=== PATIENT | female | born 1935 | race Caucasian/White ===

== ENCOUNTER → 2018-01-15 | Outpatient (CLI) | payer OTHER ==
[~2018-01-15] MED LIST: ACTONEL150 MG PO; ADULT LOW DOSE81 MG PO; ALLEGRA ALLERGY60 MG PO; ATORVASTATIN CA40 MG PO; BENADRYL25 MG PO; CALCIUM; CALCIUM 500 +1 EAC5 PO; CALCIUM PO; CARVEDILOL12.5 MG PO; CELEXA 10 MG TA10 M1 PO; CENTRUM SILVER1 EAC1 PO; DHEA25 MG PO; ELIQUIS5 MG PO; FLECAINIDE ACE100 MG PO; LANOXIN 0.120.125 M1 PO; LEVOTHYROXIN0.088 MG PO; LEVOXYL100 MCG PO; LIPITOR20 MG PO; MEGA BIOTIN10000 MCG PO; MEGA RED; MEGA RED PO; MULTIVITAMINS PO; OMEGA-31000 MG PO; PACERONE 200 M200 M1 PO; POLICOSANOL PO; PRILOSEC PO; PRILOSEC20 MG PO; VITAMIN D400 UNI1 PO; ZOCOR PO; [UNRECOGNIZED DRUG - REMARK]
== END ==
LOC: RAD 12:36
DX: I10 Essential (primary) hypertension (principal); I48.91 Unspecified atrial fibrillation; Z79.899 Other long term (current) drug therapy

== ENCOUNTER → 2021-11-28 | Outpatient (CLI) | payer MEDICARE ==
[2021-11-28 11:29] LABS: CREATININE 0.9 mg/dL (0.6-1.0)
== END ==
LOC: CAT 10:03
PROVIDERS: ATTEND Family Medicine
DX: J43.9 Emphysema, unspecified (principal); J90 Pleural effusion, not elsewhere classified; K57.30 Diverticulosis of large intestine without perforation or abscess without bleeding; N28.1 Cyst of kidney, acquired; R19.05 Periumbilic swelling, mass or lump; E27.8 Other specified disorders of adrenal gland; N32.89 Other specified disorders of bladder; M43.16 Spondylolisthesis, lumbar region; M48.061 Spinal stenosis, lumbar region without neurogenic claudication; I70.0 Atherosclerosis of aorta; R91.8 Other nonspecific abnormal finding of lung field; Z88.5 Allergy status to narcotic agent